=== PATIENT | female | born 2000 | race Hispanic/Latino ===

== ENCOUNTER 2024-04-06 23:06 | Emergency (ER) | payer OTHER, BC ==
[~2024-04-06] VITALS: Ht 165.1 cm; Wt 100.9 kg
[2024-04-07 01:50] VITALS: TEMP 97.8
[2024-04-07] MEDS: ONDANSETRON 4MG 2ML VIAL IV ONE (04:00)
[2024-04-07] MEDS: BOOSTRIX VACCINE (TETANUS/DIPHTH/ACEL. PERTUSSIS) 0.5ML SYR IM.IMMUN ONE (04:00)
[2024-04-07] MEDS: ANEXSIA, NORCO 7.5MG/325MG TABLET(HYDROCODONE/APAP) PO ONE (04:01)
[2024-04-07] MEDS: MORPHINE 2 MG/ML 1ML VIAL IV ONE (04:01)
[2024-04-07] MEDS: ceFAZolin SOD 2 GM in IV 1 EA IV ONE (04:02)
[2024-04-07 05:49] VITALS: BP 104/63; O2SAT 100
== END 2024-04-07 06:26 | disposition short-term general hospital (02) ==
LOC: M ED 23:06
DX: S01.419A Laceration without foreign body of unspecified cheek and temporomandibular area, initial encounter (principal); S01.311A Laceration without foreign body of right ear, initial encounter; Y92.019 Unspecified place in single-family (private) house as the place of occurrence of the external cause; Y93.9 Activity, unspecified; Y99.9 Unspecified external cause status; W54.0XXA Bitten by dog, initial encounter; Z88.1 Allergy status to other antibiotic agents; Z23 Encounter for immunization
CPT/HCPCS: 70486; 90471; 90715; 96365; 96366; 96374; 96375; 99284; J0690; J2405